=== PATIENT | female | born 1960 | race Caucasian/White ===

== ENCOUNTER 2017-07-11 16:19 | Emergency (ER) | payer BC ==
[2017-07-11 18:41] VITALS: BP 109/44
--- NOTE | 2017-07-11 19:00 | ED ---
Throat Pain/Nasal Congestion - HPI Summary HPI Summary: 56 yr old female with pressure in both ears, onset about 10 days ago, associated with mild sinus pressure. - History of Current Complaint Chief Complaint: UCEar Time Seen by Provider: 07/11/17 18:49 - Allergies/Home Medications Allergies/Adverse Reactions: Allergies Allergy/AdvReac Type Severity Reaction Status Date / Time MS Penicillins [Penicillins] Allergy Intermediate Hives Verified 07/11/17 18:41 Home Medications: Home Medications Propranolol HCl 40 mg PO BEDTIME 07/11/17 [History Confirmed 07/11/17] PMH/Surg Hx/FS Hx/Imm Hx Infectious Disease History: No Infectious Disease History: Denies: Traveled Outside the [place] in Last 30 Days - Family History Known Family History: Positive: None - Social History Alcohol Use: Rare Substance Use Type: Reports: None Smoking Status (MU): Never Smoked Tobacco Review of Systems Positive: Ear Ache, Nasal Discharge Positive: Cough All Other Systems Reviewed And Are Negative: Yes Physical Exam Triage Information Reviewed: Yes Vital Signs On Initial Exam: Initial Vitals Temp Pulse Resp BP Pulse Ox 98.8 F 66 16 109/44 98 07/11/17 18:29 07/11/17 18:29 07/11/17 18:29 07/11/17 18:29 07/11/17 18:29 Vital Signs Reviewed: Yes Appearance: Positive: Well-Appearing, No Pain Distress Skin: Positive: Warm Head/Face: Positive: Normal Head/Face Inspection Eyes: Positive: EOMI ENT: Positive: Normal ENT inspection, Pharynx normal, Nasal congestion, TM red - mild red bilateral with retraction Neck: Positive: Nontender Respiratory/Lung Sounds: Positive: Clear to Auscultation, Breath Sounds Present Cardiovascular: Positive: RRR. Negative: Murmur Abdomen Description: Positive: Nontender Musculoskeletal: Positive: Strength/ROM Intact Neurological: Positive: Sensory/Motor Intact, Alert, Oriented to Person Place, Time, CN Intact II-III Psychiatric: Positive: Normal - Ying Coma Scale Best Eye Response: 4 - Spontaneous Best Motor Response: 6 - Obeys Commands Best Verbal Response: 5 - Oriented Coma Scale Total: 15 Diagnostics - Vital Signs Vital Signs Temp Pulse Resp BP Pulse Ox 07/11/17 18:29 98.8 F 66 16 109/44 98 - Laboratory Lab Statement: Any lab studies that have been ordered have been reviewed, and results considered in the medical decision making process. EENT Course/Dx - Course Course Of Treatment: 56 yr old with bilateral ear TM retraction and mild redness. Will Rx with zithromax. Plan dc to home. She has appointment with dr Benoit ENT on Tuesday of this week. - Diagnoses Provider Diagnoses: Otitis media Discharge - Discharge Plan Condition: Good Disposition: HOME Prescriptions: Azithromycin TAB* [Zithromax TAB (Z-SAPPHIRE) 250 mg #6 tabs] 2 tab PO .TODAY, THEN 1 DAILY #1 sapphire Patient Education Materials: Serous Otitis Media (ED) Referrals: Marisol Kan PA [Primary Care Provider] - 1 Day Timmy Benoit MD [Medical Doctor] -
== END 2017-07-11 19:05 | disposition home or self-care (01) ==
LOC: UCCORT 16:19
DX: H66.93 Otitis media, unspecified, bilateral (principal)
CPT/HCPCS: 99212; G0463

== ENCOUNTER 2018-12-29 10:51 | Emergency (ER) | payer BC ==
[2018-12-29 11:57] VITALS: BP 99/56
--- NOTE | 2018-12-29 12:10 | UC ---
Respiratory Complaint HPI - HPI Summary HPI Summary: Ms. Issa has been having thick green nasal congestion and facial pain for over a week. She has been using [id number] decongestants as well as a milli pot for 6 days. She denies other symptoms - History of Current Complaint Chief Complaint: UCRespiratory Stated Complaint: SINUS CONCERN Time Seen by Provider: 12/29/18 11:47 Hx Obtained From: Patient Hx Last Menstrual Period: 06/2014 Onset/Duration: Gradual Onset, Lasting Days Timing: Constant Severity Initially: Mild Severity Currently: Moderate Pain Intensity: 5 Associated Signs And Symptoms: Positive: Nasal Congestion - Allergies/Home Medications Allergies/Adverse Reactions: Allergies Allergy/AdvReac Type Severity Reaction Status Date / Time Penicillins Allergy Hives Verified 12/29/18 11:49 Home Medications: Home Medications Acetaminophen [Acetaminophen Extra Strength] 1,000 mg PO Q6H PRN 12/29/18 [ History Confirmed 12/29/18] Ibuprofen TAB* [Advil TAB*] 400 mg PO Q6H PRN 12/29/18 [History Confirmed ] guaiFENesin ER TAB [Mucinex*] 600 mg PO BID PRN 12/29/18 [History Confirmed 07/18] PMH/Surg Hx/FS Hx/Imm Hx Previously Healthy: Yes - Surgical History Surgical History: None - Family History Known Family History: Positive: None - Social History Alcohol Use: Rare Substance Use Type: None Smoking Status (MU): Never Smoked Tobacco Review of Systems All Other Systems Reviewed And Are Negative: Yes Eyes: Positive: Negative ENT: Positive: Nasal Discharge, Sinus Congestion, Sinus Pain/Tenderness Respiratory: Positive: Negative Physical Exam - Summary Physical Exam Summary: She is nontoxic in appearance with stable vitals. Triage Information Reviewed: Yes Appearance: Well-Appearing Vital Signs: Initial Vital Signs Temp 98.7 F 12/29/18 11:52 Pulse 64 12/29/18 11:52 Resp 16 12/29/18 11:52 BP 99/56 12/29/18 11:52 Pulse Ox 99 12/29/18 11:52 Vital Signs Reviewed: Yes Eye Exam: Normal ENT: Positive: Nasal congestion, Sinus tenderness, Other - Maxillary sinuses transilluminate poorly Neck: Positive: Supple, No Lymphadenopathy Respiratory: Positive: Chest non-tender Respiratory Course/Dx - Course Course Of Treatment: I think she is given a reasonable try with a week of decongestants and using the diabetic. I will treat her with doxycycline as she is allergic to penicillin - Differential Dx/Diagnosis Provider Diagnosis: Sinusitis Discharge - Sign-Out/Discharge Documenting (check all that apply): Patient Departure All imaging exams completed and their final reports reviewed: No Studies - Discharge Plan Condition: Stable Disposition: HOME Patient Education Materials: Sinusitis (ED) Referrals: Marisol Kan PA [Primary Care Provider] - - Billing Disposition and Condition Condition: STABLE Disposition: Home
== END 2018-12-29 12:39 | disposition home or self-care (01) ==
LOC: UCCORT 10:51
DX: J32.9 Chronic sinusitis, unspecified (principal)
CPT/HCPCS: 99212; G0463

== ENCOUNTER 2019-05-13 09:30 | Emergency (ER) | payer BC ==
[2019-05-13 10:10] VITALS: BP 93/54
--- NOTE | 2019-05-13 10:24 | UC ---
Ear Complaint HPI - HPI Summary HPI Summary: Pt presents with c/o URI like symptoms X 2 weeks and then gradual onset of left ear pain and "plugged" sensation that has worsened over the last 2-3 days. Pt has hx of cerumen impaction. Pt has been putting hydrogen peroxide and warm water in left ear. - History of Current Complaint Stated Complaint: EAR PAIN Time Seen by Provider: 05/13/19 09:53 Hx Obtained From: Patient Hx Last Menstrual Period: 06/2014 ?: No Onset/Duration: Gradual Onset, Lasting Days, Still Present Severity Initially: Mild Severity Currently: Moderate Pain Intensity: 7 Aggravating Factors: Nothing Alleviating Factors: Nothing Associated Signs/Symptoms: Positive: Hearing Loss, Foreign Body Sensation, URI Symptoms - Allergies/Home Medications Allergies/Adverse Reactions: Allergies Allergy/AdvReac Type Severity Reaction Status Date / Time Penicillins Allergy Hives Verified 12/29/18 11:49 PMH/Surg Hx/FS Hx/Imm Hx Previously Healthy: Yes - Surgical History Surgical History: None - Family History Known Family History: Positive: Cardiac Disease - Social History Occupation: Employed Full-time Lives: With Family Alcohol Use: Rare Substance Use Type: None Smoking Status (MU): Never Smoked Tobacco Have You Smoked in the Last Year: No - Immunization History Vaccination Up to Date: Yes Review of Systems All Other Systems Reviewed And Are Negative: Yes Constitutional: Positive: Fatigue Skin: Positive: Negative Eyes: Positive: Negative ENT: Positive: Ear Ache, Sinus Congestion Respiratory: Positive: Negative Cardiovascular: Positive: Negative Gastrointestinal: Positive: Negative Genitourinary: Positive: Negative Motor: Positive: Negative Neurovascular: Positive: Negative Musculoskeletal: Positive: Negative Neurological: Positive: Negative Psychological: Positive: Negative Is Patient Immunocompromised?: No Physical Exam Triage Information Reviewed: Yes Appearance: Well-Appearing Vital Signs: Initial Vital Signs Temp 98.6 F 05/13/19 10:04 Pulse 65 05/13/19 10:04 Resp 18 05/13/19 10:04 BP 93/54 05/13/19 10:04 Pulse Ox 98 05/13/19 10:04 Vital Signs Reviewed: Yes Eye Exam: Normal ENT: Positive: Nasal congestion, TM bulging - left, TM red - left TM Dental Exam: Normal Neck exam: Normal Respiratory Exam: Normal Cardiovascular Exam: Normal Musculoskeletal Exam: Normal Neurological Exam: Normal Psychological Exam: Normal Skin Exam: Normal Ear Complaint Course/Dx - Differential Dx/Diagnosis Differential Diagnosis/HQI/PQRI: Cerumen Impaction, Otitis Media, URI Provider Diagnosis: Otitis media Discharge ED - Sign-Out/Discharge Documenting (check all that apply): Patient Departure All imaging exams completed and their final reports reviewed: No Studies - Discharge Plan Condition: Stable Disposition: HOME Prescriptions: Azithromycin TAB* [Zithromax TAB (Z-SAPPHIRE) 250 mg #6 tabs] 2 tab PO .TODAY, THEN 1 DAILY #1 sapphire Patient Education Materials: Ear Infection (ED) Referrals: Marisol Kan PA [Primary Care Provider] - If Needed Additional Instructions: Please follow up with your PCP as needed. - Billing Disposition and Condition Condition: STABLE Disposition: Home
== END 2019-05-13 10:34 | disposition home or self-care (01) ==
LOC: UCCORT 09:30
DX: H66.92 Otitis media, unspecified, left ear (principal); R53.83 Other fatigue; R09.81 Nasal congestion; Z88.0 Allergy status to penicillin
CPT/HCPCS: 99212; G0463

== ENCOUNTER 2019-05-22 15:16 | Emergency (ER) | payer BC ==
[2019-05-22 15:24] VITALS: BP 105/68
--- NOTE | 2019-05-22 15:34 | UC ---
Ear Complaint HPI - HPI Summary HPI Summary: bilateral plugged ears x 5 days no ear pain, no ear trauma , , denies any cold symptoms no fever, no chills - History of Current Complaint Chief Complaint: UCEar Stated Complaint: EAR COMPLAINT Time Seen by Provider: 05/22/19 15:23 Hx Obtained From: Patient Hx Last Menstrual Period: 06/2014 ?: No Onset/Duration: Gradual Onset, Lasting Days - 5, Still Present Severity Initially: Moderate Severity Currently: Moderate Pain Intensity: 0 Aggravating Factors: Nothing Alleviating Factors: Nothing Associated Signs/Symptoms: Negative: Discharge, Hearing Loss, Foreign Body Sensation, Trauma to Ear, Swelling @, URI Symptoms - Allergies/Home Medications Allergies/Adverse Reactions: Allergies Allergy/AdvReac Type Severity Reaction Status Date / Time Penicillins Allergy Hives Verified 05/22/19 15:20 Home Medications: Home Medications DOXYcycline CAP(*) [DOXYcycline 100MG CAP(*)] 100 mg PO BID 05/22/19 [History Confirmed 05/22/19] Dicyclomine CAP* [Bentyl CAP*] 10 mg PO BID 05/22/19 [History Confirmed 05/22/19 ] PMH/Surg Hx/FS Hx/Imm Hx - Additional Past Medical History Additional PMH: IBS, depression, migraines Neurological History: Migraine Psychological History: Depression - Surgical History Surgical History: None - Family History Known Family History: Positive: None, Cardiac Disease - Social History Alcohol Use: Occasionally Substance Use Type: None Smoking Status (MU): Never Smoked Tobacco Have You Smoked in the Last Year: No - Immunization History Vaccination Up to Date: Yes Review of Systems All Other Systems Reviewed And Are Negative: Yes Is Patient Immunocompromised?: No Physical Exam Triage Information Reviewed: Yes Appearance: Well-Appearing, No Pain Distress, Well-Nourished Vital Signs: Initial Vital Signs Temp 97.8 F 05/22/19 15:20 Pulse 69 05/22/19 15:20 Resp 16 05/22/19 15:20 BP 105/68 05/22/19 15:20 Pulse Ox 100 05/22/19 15:20 Vital Signs Reviewed: Yes Eye Exam: Normal Eyes: Positive: Conjunctiva Clear ENT: Positive: Normal ENT inspection, Hearing grossly normal, Pharynx normal, TMs normal. Negative: TM bulging, TM dull, TM red Neck: Positive: Supple, Nontender, No Lymphadenopathy Respiratory: Positive: Chest non-tender, Normal breath sounds, No respiratory distress, No accessory muscle use Cardiovascular: Positive: RRR, No Murmur, Pulses Normal Abdominal Exam: Normal Skin Exam: Normal Ear Complaint Course/Dx - Differential Dx/Diagnosis Provider Diagnosis: Eustachian tube dysfunction Discharge ED - Sign-Out/Discharge Documenting (check all that apply): Patient Departure All imaging exams completed and their final reports reviewed: No Studies - Discharge Plan Condition: Stable Disposition: HOME Patient Education Materials: Barotrauma (ED) Referrals: Marisol Kan PA [Primary Care Provider] - If Needed Additional Instructions: no ear wax seen ? pressure behind your ear drum may try Flonase daily x 7 to 10 days follow up with your pcp in one week if not better - Billing Disposition and Condition Condition: STABLE Disposition: Home
== END 2019-05-22 15:25 | disposition home or self-care (01) ==
LOC: UCCORT 15:16
DX: H69.93 Unspecified Eustachian tube disorder, bilateral (principal); Z88.0 Allergy status to penicillin; K58.9 Irritable bowel syndrome, unspecified; Z79.899 Other long term (current) drug therapy
CPT/HCPCS: 99211; G0463